=== PATIENT | female | born 1995 | race Caucasian/White ===

== ENCOUNTER 2018-11-06 16:19 | Inpatient (IN) ==
[2018-11-06] MEDS ORDERED: OXYTOCIN 30 UNITS/500 ML BAG IV PRN (16:37)
[2018-11-06] MEDS: LACTATED RINGER'S 1,000 ML IV PRN ×3 (16:40→21:14)
[2018-11-06] MEDS ORDERED: BUTORPHANOL TARTRATE 2 MG/ML VIAL IV ONE (17:00)
[2018-11-06] MEDS ORDERED: CEFAZOLIN 2000MG 2,000 MG/15 ML SYR IV ONE (17:00)
--- NOTE | 2018-11-06 17:08 | History & Physical Report ---
Date of Service November 06, 2018 Assessment & Plan (1) 40 weeks gestation of : (2) Normal labor: admit, expectantly manage, patient desires stadol at this time, but declines epidural. Fetus overall category two from variables, but reassuring. anticipate . Will treat with ancef for gbs. History of Present Illness Chief Complaint: contractions, leaking fluid Primary Care Provider: NO PCP Patient is a 23yowf with iup at 40 2/7 based on a first trimester ultrasound who presents to labor and delivery complaining of contractions and lof. min spotting. +fm. complicated by gbs, hx of pet in prior . Conceived with paragard IUD and was in the the cervix at her first visit as it was at the ext ox. labs--A+/ab-/papnl/ri/rprnr/hepb-/hiv-/gc/ct-/cf neg/panorama low risk/afp neg/gtt x 2 neggbs positive Patient notes that she has a very strong family hx of allery to pcn. She has never had but refuses pcn for gbs but is ok with ancef. Allergies Allergy/AdvReac Type Severity Reaction Status Date / Time Penicillins Allergy Unknown Verified 11/06/18 17:02 Home Medications Home Medications Medication Instructions Recorded Confirmed Type multivitamin 1 tab PO DAILY 11/06/18 11/06/18 History Patient History Medical History Asthma History of varicella [place] teeth extracted Surgical History Anxiety Social History Preferred Language: Malay Communication Ability: Effective Beliefs That Will Affect Care: None marital status: Single Current Living Situation: Significant Other Current Living Situation Comment: significant other and 2 children Other Information That Helps Us Care for You: No Feels Safe at Home: Yes Safety Concerns: Feels Safe At This Time Smoking Status: Never smoker Hx Alcohol Use: No Hx Substance Use: No OB History g1--06/04--, 37 weeks, hx of barbara at 33 weeks with mag, 6#7oz, pet after delivery [employer] History no stds, no abnl paps Review of Systems All systems reviewed & are unremarkable except as noted in HPI & below Physical Exam Constitutional: WD/WN, vitals as above Cardiovascular: Extremities: no edema Gastrointestinal (Abdomen): abd0--soft, nt, gravid Genitourinary: cx--5-6/100/-1 toco--q2min efm--130s with mod variability, accels present, variables with contractions Results & Data Vital Signs (Past 12 Hours) Vital Signs Pulse BP 11/06/18 16:33 73 105/74
[2018-11-06 17:30] LABS: Hematocrit (blood only) 32.8 % (37-47); Hemoglobin 10.9 g/dL (12.0-16.0); Mean Corpuscular Hgb Conc 33.2 g/dL (32-36); Mean Corpuscular Volume 81.2 fL (80-100); Mean Platelet Volume 11.8 fL (7.4-10.4); Platelet Count 102 K/uL (130-400); RDW Coefficient of Variation 14.6 % (11.5-14.5); Red Blood Count 4.04 M/uL (4.2-5.4); White Blood Count 11.69 K/uL (4.8-10.8)
--- NOTE | 2018-11-06 19:22 | Labor Progress Brief Note ---
Date of Service November 06, 2018 Subjective Breathing through contractions well Assessment & Plan (1) Normal labor: Tried to have her push past the cervix and was unable to reduce. Continue expectant management. fetus reassuring. Physical Exam Constitutional: WD/WN, vitals as above Genitourinary: cx--9/rim/0 toco--q1-2min efm--130s with mod variability, small accels, rare variable Results & Data Vital Signs (Past 12 Hours) Vital Signs Temp Pulse Resp BP 11/06/18 18:29 97.2 F L 20 11/06/18 16:45 99.0 F 11/06/18 16:33 73 105/74
--- NOTE | 2018-11-06 19:57 | Communication Note ---
Date of Service: November 06, 2018 still rim. Changed over to knee chest for pushing.
[2018-11-06] MEDS ORDERED: BUPIVACAINE 0.25% 30 ML VIAL ONE ×2 (20:09→20:12)
--- NOTE | 2018-11-06 20:09 | Labor Progress Brief Note ---
Date of Service November 06, 2018 Subjective uncomfortable with contractions Assessment & Plan (1) Normal labor: Very concerned that we are not making progress. Plan epidural to relax the pelvis to see if with that, cervix will reduce and baby will come down. If it does not, will need to proceed with c/s. Explained the situation with the patient and FOB and they agree to plan. Fetus overall reassuring. Physical Exam Constitutional: WD/WN, vitals as above Genitourinary: cx--still rim after knee/chest, unable to reduce toco--q2min efm--120s with mod variability, variables with attempt at push and reduction Results & Data Vital Signs (Past 12 Hours) Vital Signs Temp Pulse Resp BP 11/06/18 18:29 97.2 F L 20 11/06/18 16:45 99.0 F 11/06/18 16:33 73 105/74
[2018-11-06] MEDS ORDERED: fentaNYL citrate 100 MCG/2 ML VIAL ONE ×3 (20:10→21:40)
[2018-11-06] MEDS ORDERED: ePHEDrine sulfate 50 MG/ML AMP ONE (20:12)
[2018-11-06] MEDS ORDERED: fentaNYL 2MCG/ML ROPIV 1.25MG/ML 100 ML BAG EPI ONE (20:12)
--- NOTE | 2018-11-06 20:44 | Anesthesiology Consultation ---
Date of Service November 06, 2018 Assessment & Plan (1) Encounter for pre-operative examination: Chart Review Chart Review: Acceptable Risk for Surgery Consults Requested none ASA ASA2 Proposed Anesthesia Anesthesia Type: Labor Epidural Risk / Benefits Reviewed With: PT / POA / Parent / Guardian, Accepts Plan and Informed Consent Obtained History Height/Weight Height: 4 ft 11.75 in Weight: 49.895 kg Allergies Allergy/AdvReac Type Severity Reaction Status Date / Time Penicillins Allergy Unknown Verified 11/06/18 17:02 Medications Home Medications Medication Instructions Recorded Confirmed Last Taken multivitamin 1 tab PO DAILY 11/06/18 11/06/18 11/06/18 09:00 Active Medications Generic Name Dose Route Start Last Admin Trade Name Freq PRN Reason Stop Dose Admin Lactated Ringer's 1,000 mls @ 125 mls/hr 11/06/18 16:37 11/06/18 20:34 Lr IV 11/08/18 16:36 125 mls/hr .Q8H PRN Infusion L&D Protocol Protocol Past Medical History Medical History Asthma History of varicella [place] teeth extracted Exercise / Class Metabolic Activity II 4-5 Yardwork/Stairs/Walk up hill Past Surgical History Surgical History Anxiety Past Anesthesia History No Hx of Anesthesia Complications and No Family Hx of Anesthesia Complications History of PONV No Hx of PONV and No Hx of Motion Sickness Social History Smoking Status: Never smoker Hx Alcohol Use: No Hx Substance Use: No Physical Exam Vital Signs Last Vital Signs Temp 97.7 F 11/06/18 20:00 Pulse 77 11/06/18 20:27 Resp 20 11/06/18 20:00 BP 140/87 11/06/18 20:27 ENMT Mouth: no dentition abnormality Thyromental Distance: > or= 3.5 Finger Breadths Mallampati Class: II Neck normal visual inspection Respiratory normal respiratory effort Auscultation: lungs clear to auscultation bilaterally Cardiovascular Rate/Rhythm: regular rate and regular rhythm
[2018-11-06] MEDS ORDERED: LACTATED RINGER'S 1,000 ML IV PRN ×2 (21:05→21:43)
[2018-11-06] MEDS ORDERED: DiphenhydrAMINE HCL 50 MG/ML VIAL IV PRN ×2 (21:05→21:43)
[2018-11-06] MEDS ORDERED: NALBUPHINE HCL INJ 10 MG/ML AMP IV PRN ×2 (21:05→21:43)
[2018-11-06] MEDS ORDERED: fentaNYL 2MCG/ML ROPIV 1.25MG/ML 100 ML BAG EPI PRN ×2 (21:05→21:43)
[2018-11-06] MEDS ORDERED: NALOXONE HCL 1 MG in SODIUM CHLORIDE 0.9% 1000ML 1,000 ML IV PRN ×2 (21:05→21:43)
[2018-11-06] MEDS ORDERED: ePHEDrine sulfate 50 MG/ML AMP IV PRN ×2 (21:05→21:43)
[2018-11-06] MEDS ORDERED: NALOXONE HCL 0.4 MG/1 ML VIAL/CARP IV PRN ×2 (21:05→21:43)
[2018-11-06] MEDS ORDERED: ONDANSETRON INJ 2 MG/ML 2 ML VIAL IV PRN ×2 (21:05→21:43)
--- NOTE | 2018-11-06 21:18 | Labor Progress Brief Note ---
Date of Service November 06, 2018 Subjective comfortable with epidural. on side, peanut ball placed. Assessment & Plan (1) Normal labor: Patient now comfortable and positioned with epidural. Will check in one hour. If cervix still there, will probably need to move forward with c/s for failure to progress descend. I am hopeful that with epidural, she will relax and pelvis will relax and she can then deliver vaginally. Fetus overall reassuring. afeb and no s/s of infection. no fluid for awhile. Physical Exam Constitutional: WD/WN, vitals as above Genitourinary: toco--q1-2min efm--120 with mod variability, small accels, small variables Results & Data Vital Signs (Past 12 Hours) Vital Signs Temp Pulse Resp BP Pulse Ox 11/06/18 21:11 82 100 11/06/18 21:06 83 18 113/75 100 11/06/18 21:04 89 18 110/73 11/06/18 21:03 18 11/06/18 21:02 90 114/76 11/06/18 21:01 99 H 118/75 100 11/06/18 21:00 105 H 112/74 11/06/18 20:59 18 11/06/18 20:56 80 100 11/06/18 20:27 77 140/87 11/06/18 20:00 97.7 F 20 11/06/18 18:29 97.2 F L 20 11/06/18 16:45 99.0 F 20 11/06/18 16:33 73 105/74
--- NOTE | 2018-11-06 22:23 | Labor Progress Brief Note ---
Date of Service November 06, 2018 Subjective comfortable Assessment & Plan (1) Normal labor: Will now attempt second stage. baby much lower and molded so I am much more hopeful for vaginal delivery. Fetus overall reassuring. Will monitor closely. Physical Exam Constitutional: WD/WN, vitals as above Genitourinary: cx--c/c/+1, cervix gone, no lip, baby lower, increased molding of the head, probable rop toco--q1-2min efm--130s with mod variability, small accels , small variables Results & Data Vital Signs (Past 12 Hours) Vital Signs Temp Pulse Resp BP Pulse Ox 11/06/18 22:16 75 99/65 L 97 11/06/18 22:11 78 98 11/06/18 22:06 97 H 98 11/06/18 22:01 99.3 F 63 104/65 98 11/06/18 21:56 68 98 11/06/18 21:51 69 98 11/06/18 21:50 18 11/06/18 21:46 69 109/66 99 11/06/18 21:43 64 103/61 11/06/18 21:41 72 100 11/06/18 21:40 69 108/65 11/06/18 21:36 72 100 11/06/18 21:31 73 100 11/06/18 21:29 18 11/06/18 21:26 71 100 11/06/18 21:21 70 100 11/06/18 21:16 80 100 11/06/18 21:15 86 152/87 H 11/06/18 21:13 18 11/06/18 21:11 82 100 11/06/18 21:06 83 18 113/75 100 11/06/18 21:04 89 18 110/73 11/06/18 21:03 18 11/06/18 21:02 90 114/76 11/06/18 21:01 99 H 118/75 100 11/06/18 21:00 105 H 112/74 11/06/18 20:59 18 11/06/18 20:56 80 100 11/06/18 20:27 77 140/87 11/06/18 20:00 97.7 F 20 11/06/18 18:29 97.2 F L 20 11/06/18 16:45 99.0 F 20 11/06/18 16:33 73 105/74
[2018-11-06] MEDS ORDERED: ACETAMINOPHEN 325 MG TAB PO PRN (22:50)
[2018-11-06] MEDS ORDERED: OXYCODONE/ACETAMINOPHEN 5mg/325mg TAB PO PRN (22:50)
[2018-11-06] MEDS ORDERED: IBUPROFEN 600 MG TAB PO PRN (22:50)
--- NOTE | 2018-11-07 02:14 | Operative Report ---
DATE OF OPERATION: 11/06/2018 DATE OF DELIVERY: 11/06/2018 PREOPERATIVE DIAGNOSES: 1. Intrauterine at 40 and 2/7 weeks. 2. Active labor. POSTOPERATIVE DIAGNOSES: 1. Intrauterine at 40 and 2/7 weeks. 2. Active labor. PROCEDURES: 1. Epidural anesthesia. 2. Normal spontaneous vaginal delivery. SURGEON: Latonya Kessler MD ANESTHESIA: Epidural. ESTIMATED BLOOD LOSS: 350 mL. PROCEDURE: The patient presented to labor and delivery grossly ruptured in active labor. She progressed to a rim at 9 cm and -1 station and she stayed that way for quite a little bit. She was very uncomfortable. We tried laboring through it. We tried position change. We tried reducing the rim over the head and we were unsuccessful. The patient did want an unmedicated but given the situation, I recommended that she have an epidural and she was agreeable to such in the hopes that it would relax her pelvis. The patient underwent an epidural anesthetic and then an hour after the epidural, the patient was checked and found to be complete-complete and +2 station with appropriately molded head and in suspected ROP presentation. The patient pushed for approximately 10 minutes to deliver a viable male in HO presentation that restituted to ROP. The nose and mouth were bulb suctioned. Nuchal cord x1 was reduced and the rest of the baby was then delivered without difficulty. The infant was vigorous and placed on the maternal abdomen for drying and attention. Cord was clamped and cut at 1 minute of life and cord blood and segment were obtained. Placenta was delivered spontaneously intact with a 3-vessel cord. Cervix, sulci, rectum, and perineum were examined and all found to be hemostatic. There were some skin splits of the labia bilaterally but these were hemostatic and so no stitches were performed. Hemostasis was obtained with dilute Pitocin and fundal massage. Apgars were 8 and 10. Mother and baby doing well at the end of the delivery. I attest to the content of the Intraoperative Record and any orders documented therein. Any exception s are noted below.
[2018-11-07] MEDS ORDERED: DIPHTHERIA/TETANUS/PERTUSSIS 0.5 ML SYR/VIAL IM ONE (02:29)
[2018-11-07] MEDS ORDERED: BISACODYL 10 MG SUPP PR PRN (02:29)
[2018-11-07] MEDS ORDERED: OXYTOCIN 30 UNITS/500 ML BAG IV PRN (02:29)
[2018-11-07] MEDS ORDERED: HYDROCORTISONE ACETATE 25 MG SUPP PR PRN (02:29)
[2018-11-07] MEDS ORDERED: SUPERCREAM 0.870% 15 GM JAR EXT PRN (02:29)
[2018-11-07] MEDS ORDERED: BENZOCAINE 20% AER SPR 82.5 GM CAN EXT PRN (02:29)
[2018-11-07 06:08] LABS: Hematocrit (blood only) 28.9 % (37-47); Hemoglobin 9.7 g/dL (12.0-16.0)
--- NOTE | 2018-11-07 07:03 | Obstetrical Progress Note ---
Date of Service <Jose Alberto Quach MD - Last Filed: 11/07/18 07:25> November 07, 2018 Assessment & Plan <Jose Alberto Quach MD - Last Filed: 11/07/18 07:25> (1) (normal spontaneous vaginal delivery): day 1 s/p at 40 W 2 D Vital Signs Reviewed and WNL Hemoglobin 9.7 Blood type A+, GBS +, Rubella Immune Patient doing very well clinically, eating, walking, passing gas, and using restroom without difficulty Encouraged ambulation as tolerated, continuing with breast feeding Day #:: 1 Subjective <Jose Alberto Quach MD - Last Filed: 11/07/18 07:25> Ambulation: ambulating normally Voiding: no voiding problems Passing Gas:: Yes Diet Tolerance:: regular diet Lochia:: Moderate Feeding Type:: breast feeding Current Pain Level(1-10): 1 Physical Exam <Jose Alberto Quach MD - Last Filed: 11/07/18 07:25> Vital Signs (Past 24 Hours) Last Vital Signs Temp 37.2 C 11/07/18 03:30 Pulse 72 11/07/18 03:30 Resp 18 11/07/18 03:30 BP 113/74 11/07/18 03:30 Pulse Ox 98 11/07/18 01:20 Constitutional well developed, well nourished, cooperative and comfortable; no acute distress Respiratory normal respiratory effort, lungs clear to auscultation Cardiovascular Rate/Rhythm: regular rate and regular rhythm Heart Sounds: no click, no gallop, no murmur and no cardiac rub Extremities: no calf tenderness Genitourinary OB Exam Abdomen: + fundal height Fundus: + firm and + relation to umbilicus (1 cm below umbilicus and firm); not tender <Latonya Kessler MD, FACOG - Last Filed: 11/07/18 07:45> Co-Signing Physician Notes Resident Physician Supervision Note: I interviewed and examined the patient. Discussed with Dr. Quach and agree with findings and plan as documented in the note. Any exceptions or clarifications are listed here: Doing well. Plan d/c. Instructions given. Documented By: Latonya Kessler MD, FACOG Resident Activity Tracking <Jose Alberto Quach MD - Last Filed: 11/07/18 07:25> Resident Involvement: Resident Care Provided Care Provided: Adult Hospital Medicine
[2018-11-07] MEDS: DOCUSATE SODIUM 100 MG CAP PO SCH ×2 (09:05→20:45)
[2018-11-07] MEDS: PRENATAL VITAMIN 1 TAB PO SCH (09:05)
--- NOTE | 2018-11-07 09:24 | Anesthesia Procedure Note ---
Date of Service November 07, 2018 Anesthesia Post Epidural Note Vital Signs Vital Signs: Temp Pulse Pulse Resp BP BP Pulse Ox 11/07/18 08:20 36.9 C 83 16 105/72 98 11/07/18 03:30 37.2 C 72 18 113/74 11/07/18 01:20 37.3 C 90 18 123/82 98 11/07/18 01:04 37.4 C 71 18 105/65 11/07/18 01:00 68 103/66 11/07/18 00:45 75 107/68 11/07/18 00:35 18 11/07/18 00:34 81 106/63 11/07/18 00:30 82 113/68 11/07/18 00:15 90 18 108/58 L 11/07/18 00:13 90 103/62 11/07/18 00:05 18 11/06/18 23:50 18 11/06/18 23:45 67 123/72 11/06/18 23:38 80 126/62 11/06/18 23:20 18 11/06/18 23:19 64 116/73 11/06/18 23:17 71 192/75 H 11/06/18 23:01 96 H 115/75 11/06/18 22:50 36.9 C 18 11/06/18 22:47 88 112/60 11/06/18 22:37 105 H 91 11/06/18 22:36 94 H 99 11/06/18 22:32 98 H 125/61 11/06/18 22:31 105 H 91 11/06/18 22:29 104 H 90 11/06/18 22:26 100 H 97 11/06/18 22:23 18 11/06/18 22:21 83 98/61 L 98 11/06/18 22:16 75 99/65 L 97 11/06/18 22:11 78 98 11/06/18 22:06 97 H 98 11/06/18 22:01 37.4 C 63 104/65 98 11/06/18 21:56 68 98 11/06/18 21:51 69 98 11/06/18 21:50 18 11/06/18 21:46 69 109/66 99 11/06/18 21:43 64 103/61 11/06/18 21:41 72 100 11/06/18 21:40 69 108/65 11/06/18 21:36 72 100 11/06/18 21:31 73 100 11/06/18 21:29 18 11/06/18 21:26 71 100 11/06/18 21:21 70 100 11/06/18 21:16 80 100 11/06/18 21:15 86 152/87 H 11/06/18 21:13 18 11/06/18 21:11 82 100 11/06/18 21:06 83 18 113/75 100 11/06/18 21:04 89 18 110/73 11/06/18 21:03 18 11/06/18 21:02 90 114/76 11/06/18 21:01 99 H 118/75 100 11/06/18 21:00 105 H 112/74 11/06/18 20:59 18 11/06/18 20:56 80 100 11/06/18 20:27 77 140/87 11/06/18 20:00 36.5 C 20 11/06/18 18:29 36.2 C L 20 11/06/18 16:45 37.2 C 20 11/06/18 16:33 73 105/74 Pain Intensity Bilateral Back: Pain Intensity: 2 Notes Mental Status: alert / awake / arousable and participated in evaluation Nausea / Vomiting: adequately controlled Pain: adequately controlled Airway Patency, RR, SpO2: stable & adequate BP & HR: stable & adequate Hydration State: stable & adequate Neuraxial Anesthesia: was administered and sensory block is resolving Anesthetic Complications: no major complications apparent and Pt Satisfied with anesthetic care Epidural: Removed without complications and With tip intact
[2018-11-07] MEDS ORDERED: BISACODYL 5 MG TABEC PO SCH (20:00)
--- NOTE | 2018-11-08 07:00 | Obstetrical Progress Note ---
Date of Service <Jose Alberto Quach MD - Last Filed: 11/08/18 07:07> November 08, 2018 Assessment & Plan <Jose Alberto Quach MD - Last Filed: 11/08/18 07:07> (1) (normal spontaneous vaginal delivery): Vital Signs Reviewed and WNL Hemoglobin 9.7 Blood type A+, GBS +, Rubella Immune Patient doing very well clinically, eating, walking, passing gas, and using restroom without difficulty Encouraged ambulation as tolerated, continuing with breast feeding Went over all discharge instructions with patient she will follow up with Dr. Kessler in 6 weeks. Subjective <Jose Alberto Quach MD - Last Filed: 11/08/18 07:07> Ambulation: ambulating normally Voiding: no voiding problems Passing Gas:: Yes Diet Tolerance:: regular diet Lochia:: Small Feeding Type:: breast feeding Current Pain Level(1-10): 0 Ms. Evans is doing remarkably well and endorses no discomfort currently. She feels she is ready to return home. Constitutional: no fever and no chills Respiratory: no cough and no dyspnea Cardiovascular: no chest pain, no dyspnea at rest and no edema Physical Exam <Jose Alberto Quach MD - Last Filed: 11/08/18 07:07> Vital Signs (Past 24 Hours) Last Vital Signs Temp 36.7 C 11/07/18 23:00 Pulse 70 11/07/18 23:00 Resp 18 11/07/18 23:00 BP 110/70 11/07/18 23:00 Pulse Ox 97 11/07/18 15:25 Constitutional well developed, well nourished, cooperative and comfortable Respiratory normal respiratory effort, lungs clear to auscultation Cardiovascular Rate/Rhythm: regular rate and regular rhythm Heart Sounds: + murmur (Faint systolic murmur); no click, no gallop and no cardiac rub Extremities: no calf tenderness Genitourinary OB Exam Abdomen: + fundal height Fundus: + firm and + relation to umbilicus (2 cm below umbilicus and firm); not tender <Teodora Prado DO - Last Filed: 11/08/18 07:54> Co-Signing Physician Notes Resident Physician Supervision Note: I was present with Dr. Quach during the history and exam. I discussed the case with the resident and agree with the findings and plan as documented in the note. Any exceptions or clarifications are listed here: PPD#2 dc home today. Documented By: Teodora Prado, Resident Activity Tracking <Jose Alberto Quach MD - Last Filed: 11/08/18 07:07> Resident Involvement: Resident Care Provided Care Provided: OB Delivery
[2018-11-08] MEDS: PRENATAL VITAMIN 1 TAB PO SCH (08:25)
[2018-11-08] MEDS: DOCUSATE SODIUM 100 MG CAP PO SCH (08:25)
== END 2018-11-08 10:35 | disposition home or self-care (01) | DRG 807 ==
LOC: OPB 16:19 → 4S1 16:21 → 4S2 11-07 01:24